=== PATIENT | female | born 1965 | race Two or more races ===

== ENCOUNTER 2022-04-04 16:47 | Inpatient (IN) | payer MEDICAID, OTHER ==
[~2022-04-04] VITALS: Ht 160 cm; Wt 49.4 kg
--- NOTE | 2022-04-04 18:00 | NUR ---
RECEIVED PT CAME BY BALWINDER C/O SOB AND CHEST PAIN NO SOB OR DISTRESS
[2022-04-04] MEDS ORDERED: KETOROLAC TROMETHAMINE INJ 30 MG/ML VIAL ONE (18:27)
[2022-04-04] MEDS ORDERED: KETOROLAC TROMETHAMINE INJ 60 MG/2 ML VIAL IM ONE (18:30)
[2022-04-04] MEDS ORDERED: KETOROLAC TROMETHAMINE INJ 30 MG/ML VIAL IV ONE (18:30)
--- NOTE | 2022-04-04 19:00 | NUR ---
UA SENT TO LAB
[2022-04-04 19:16] LABS: ALBUMIN 2.9 g/dL (3.4-5.0); BILIRUBIN,TOTAL 0.8 mg/dL (0.2-1.0); CALCIUM, SERUM 8.7 mg/dL (8.5-10.1); CREATININE 0.6 mg/dL (0.6-1.3); POTASSIUM 4.5 mmol/L (3.5-5.1); TOTAL PROTEIN, SERUM 6.6 g/dL (6.4-8.2)
[2022-04-04 19:54] LABS: BASOPHILS % (AUTO) 0.1 % (0.0-2.0); EOSINOPHILS % (AUTO) 1.6 % (0.0-6.0); HEMATOCRIT 35 % (33-45); HEMOGLOBIN 11.4 g/dL (11.5-14.8); LYMPHOCYTES # (AUTO) 0.8 K/uL (0.8-4.8); LYMPHOCYTES % (AUTO) 18.7 % (20.0-44.0); MEAN CORPUSCULAR HGB CONC 32 g/dl (31.0-36.0); MEAN CORPUSCULAR VOLUME 86 fL (82-100); MONOCYTES # (AUTO) 0.4 K/uL (0.1-1.30); MONOCYTES % (AUTO) 10.6 % (2.0-12.0); NEUTROPHILS # (AUTO) 2.8 K/uL (1.8-8.9); PLATELET COUNT (AUTO) 120 K/uL (150-450); RED BLOOD CELL COUNT(AUTO) 4.09 MIL/uL (4.0-5.2); WHITE BLOOD COUNT (AUTO) 4.1 K/uL (4.3-11.0)
--- NOTE | 2022-04-04 20:10 | NUR ---
TROP 58
--- NOTE | 2022-04-04 23:08 | NUR ---
COVID SWAB DONE AND SENT TO LAB
[2022-04-05] MEDS ORDERED: MAGNESIUM HYDROXIDE 30 ML UDC PO PRN
[2022-04-05] MEDS ORDERED: Z GUARD REMEDY 4 OZ OINT TP PRN
[2022-04-05] MEDS ORDERED: ZOLPIDEM TARTRATE 5 MG TABLET PO PRN
[2022-04-05] MEDS ORDERED: ONDANSETRON HCL/PF 4 MG/2 ML VIAL IVP PRN
[2022-04-05] MEDS ORDERED: MAG HYDROX/AL HYDROX/SIMETH 30 ML UDC PO PRN
[2022-04-05 05:04] LABS: BASOPHILS % (AUTO) 0.1 % (0.0-2.0); EOSINOPHILS % (AUTO) 2.6 % (0.0-6.0); HEMATOCRIT 33 % (33-45); HEMOGLOBIN 10.7 g/dL (11.5-14.8); LYMPHOCYTES # (AUTO) 0.9 K/uL (0.8-4.8); MEAN CORPUSCULAR HGB CONC 32 g/dl (31.0-36.0); MEAN CORPUSCULAR VOLUME 87 fL (82-100); MONOCYTES # (AUTO) 0.5 K/uL (0.1-1.30); MONOCYTES % (AUTO) 14.7 % (2.0-12.0); NEUTROPHILS # (AUTO) 1.7 K/uL (1.8-8.9); NEUTROPHILS % (AUTO) 53.6 % (43.0-81.0); PLATELET COUNT (AUTO) 104 K/uL (150-450); RED BLOOD CELL COUNT(AUTO) 3.85 MIL/uL (4.0-5.2); WHITE BLOOD COUNT (AUTO) 3.2 K/uL (4.3-11.0)
--- NOTE | 2022-04-05 05:26 | NUR ---
REPORT GIVEN TO JAGDEEP EKNT
--- NOTE | 2022-04-05 05:27 | NUR ---
TRANSFERRING PATIENT TO [facility] VIA ACLS.
[2022-04-05 05:30] LABS: CALCIUM, SERUM 8.2 mg/dL (8.5-10.1); CARBON DIOXIDE 25 mmol/L (21-32); CHLORIDE 110 mmol/L (98-107); CREATININE 0.6 mg/dL (0.6-1.3); GLUCOSE 79 mg/dL (74-106); MAGNESIUM 1.8 mg/dL (1.8-2.4); PHOSPHORUS 3.7 mg/dL (2.5-4.9); SODIUM SERUM 142 mmol/L (136-145); UREA NITROGEN, BLOOD 20 mg/dL (7-18)
--- NOTE | 2022-04-05 05:30 | NUR ---
RN INITIAL NOTE PT ARRIVED TO UNIT VIA GURNEY; ABLE TO AMBULATE TO BED WITH STEADY GAIT. PT IS A&O X4, CALM, COOPERATIVE. PT ON RA WITH O2SAT OF 96%; NO S/S OF RESP DISTRESS, NO SOB, NON-LABORED AND EQUAL BREATHING; NOTED TO HAVE NON-PRODUCTIVE COUGH. PT ATTACHED TO EXTERNAL MONITOR, SR WITH PVCS AND CURRENT HR OF 80. IV ACCESS ON RAC 18G, INTACT AND PATENT, FLUSHES EASILY WITH NO RESISTANCE; NO MEDS/FLUIDS INFUSING THROUGH IT. PER PT REPORT, PT USED TO DRINK ALCOHOL AND SMOKE CIGARETTES, BUT NOT ANYMORE D/T FINANCIAL ISSUES. PT NOT VACCINATED AGAINST FLU OR COVID. BED IN LOWEST POSITION, CALL LIGHT WITHIN REACH, SIDE RAILS UP X. WILL INITIATE PLAN OF CARE
[2022-04-05 05:31] LABS: CHOLESTEROL 66 mg/dL (<200); HDL CHOLESTEROL 24 mg/dL (40-60); LDL 44 mg/dL (0-99); THYROID STIMULATING HORMONE < 0.007 uIU/mL (0.358-3.74); TRIGLYCERIDES 47 mg/dL (30-150)
[2022-04-05 05:35] LABS: BAND % (MANUAL) 2 % (0.0-5.0); BASOPHILS % (MANUAL) 0 % (0.0-2.0); EOSINOPHILS % (MANUAL) 0 % (0-4); LYMPHOCYTES % (MANUAL) 26 % (16-48); MONOCYTES % (MANUAL) 4 % (0-11.0); NEUTROPHILS % (MANUAL) 68 (42-76)
[2022-04-05] MEDS: ACETAMINOPHEN 325 MG TABLET PO PRN ×2 (05:51→18:13)
--- NOTE | 2022-04-05 05:52 | NUR ---
RN NOTE PT NOTED TO HAVE TEMPERATURE OF 105.8. PT ADMINISTERED TYLENOL 650 MG. WILL MONITOR FOR EFFECTIVENESS. Addendum: 04/05/22 at 0607 by PRINCESS BETTYE GANNON DISREGARD TEMPERATURE; MISCOMMUNICATION. PT REPORTS OF PAIN ON LEFT ARM. PT ADMINISTERED TYLENOL 650 MG.
[2022-04-05] MEDS: IPRATROPIUM NEB FS 0.5 MG/2.5 ML AMPUL.NEB NEB SCH ×3 (07:35→20:19)
[2022-04-05 08:00] VITALS: BP 137/65
[2022-04-05] MEDS: METOPROLOL SUCCINATE 50 MG TAB.SR.24H PO SCH (08:50)
[2022-04-05] MEDS: APIXABAN 5 MG TABLET PO SCH ×2 (08:52→21:51)
[2022-04-05] MEDS ORDERED: TIOTROPIUM BROMIDE 6 CAP/BOX CAP.W.DEV IH SCH (09:00)
[2022-04-05] MEDS: METHIMAZOLE (5MG) 5 MG TABLET PO SCH (09:00)
[2022-04-05] MEDS: FLUTICASONE/VILANTEROL 1 EACH BLST.W.DEV IH SCH (09:00)
[2022-04-05] MEDS ORDERED: PANTOPRAZOLE 40 MG VIAL IV SCH (09:00)
[2022-04-05] MEDS: PANTOPRAZOLE 40 MG TABLET.DR PO SCH (10:47)
[2022-04-05 12:00] VITALS: BP 123/60
[2022-04-05] MEDS ORDERED: THIA100T74 PO (13:27)
[2022-04-05] MEDS ORDERED: ATOR40TA PO (13:27)
[2022-04-05] MEDS ORDERED: APIX5TAB PO (13:27)
[2022-04-05] MEDS ORDERED: METO50TA7 PO (13:27)
[2022-04-05] MEDS ORDERED: SACU1TAB PO (13:27)
[2022-04-05] MEDS ORDERED: METH5TAB6 PO (13:27)
[2022-04-05] MEDS ORDERED: TIOT18CA3 IH (13:27)
[2022-04-05] MEDS ORDERED: FLUT1BLS IH (13:27)
[2022-04-05] MEDS ORDERED: ACET-868 PO (13:27)
[2022-04-05] MEDS ORDERED: LIDO30AD10 TP (13:27)
[2022-04-05] MEDS ORDERED: PANT40TA2 PO (13:27)
[2022-04-05] MEDS: LIDOCAINE 5% (PATCH) 1 EA PATCH TP SCH (15:08)
[2022-04-05 16:00] VITALS: BP 121/64
[2022-04-05] MEDS ORDERED: METOPROLOL SUCCINATE 25 MG TAB.SR.24H PO SCH (17:00)
[2022-04-05] MEDS: FUROSEMIDE 20 MG TABLET PO SCH (17:27)
[2022-04-05 20:00] VITALS: BP 113/56
[2022-04-05] MEDS: ATORVASTATIN 40 MG TABLET PO SCH (21:50)
[2022-04-06] VITALS: BP 116/55
[2022-04-06] MEDS: IPRATROPIUM NEB FS 0.5 MG/2.5 ML AMPUL.NEB NEB SCH ×4 (01:23→20:55)
[2022-04-06 04:00] VITALS: BP 100/47
[2022-04-06] MEDS: ACETAMINOPHEN 325 MG TABLET PO PRN ×2 (06:36→17:39)
--- NOTE | 2022-04-06 06:40 | NUR ---
RN CLOSING NOTES: PT IN BED AWAKE, ALERT/ORIENTED X4 AND VERBALLY RESPONSIVE. ON ROOM AIR AND PT TOLERATED WELL. O2 SAT 98%. IV ACCESS RAC#20G INTACT AND PATENT. NO S/S OF INFILTRATION. C/O PAIN ON LT ARM, TYLENOL 325 MG 2 TABS GIVEN AND PT TOLERATED WELL. ABLE TO GO TO BATHROOM BY HERSELF. COOPERATIVE. ALL DUE MEDS GIVEN ORDERED. ALL SAFETY MEASURES IN PLACE. SIDE RAILS UP X3, PLACE CALL LIGHT WITH IN REACH. WILL ENDORSE TO MORNING SHIFT NURSE.
[2022-04-06 07:18] LABS: BASOPHILS % (AUTO) 0.2 % (0.0-2.0); EOSINOPHILS % (AUTO) 2.6 % (0.0-6.0); HEMATOCRIT 34 % (33-45); HEMOGLOBIN 10.7 g/dL (11.5-14.8); LYMPHOCYTES # (AUTO) 0.9 K/uL (0.8-4.8); LYMPHOCYTES % (AUTO) 28.1 % (20.0-44.0); MEAN CORPUSCULAR HGB CONC 32 g/dl (31.0-36.0); MEAN CORPUSCULAR VOLUME 86 fL (82-100); MONOCYTES # (AUTO) 0.4 K/uL (0.1-1.30); MONOCYTES % (AUTO) 13.7 % (2.0-12.0); NEUTROPHILS # (AUTO) 1.8 K/uL (1.8-8.9); NEUTROPHILS % (AUTO) 55.4 % (43.0-81.0); PLATELET COUNT (AUTO) 111 K/uL (150-450); WHITE BLOOD COUNT (AUTO) 3.3 K/uL (4.3-11.0)
--- NOTE | 2022-04-06 07:32 | NUR ---
RN OPENING NOTES: PT IN BED AWAKE, ALERT/ORIENTED X4 AND VERBALLY RESPONSIVE. SITTING AT EDGE OF BED. ON ROOM AIR AND PT TOLERATED WELL. O2 SAT 98%. IV ACCESS RAC#20G INTACT AND PATENT. NO S/S OF INFILTRATION. ABLE TO GO TO BATHROOM BY HERSELF. COOPERATIVE. ALL SAFETY MEASURES IN PLACE. SIDE RAILS UP X3, PLACE CALL LIGHT WITH IN REACH. WILL CONTINUE PLAN OF CARE AND ANTICIPATE NEEDS.
[2022-04-06 07:35] LABS: CALCIUM, SERUM 8.1 mg/dL (8.5-10.1); CREATININE 0.6 mg/dL (0.6-1.3); PHOSPHORUS 3.5 mg/dL (2.5-4.9); POTASSIUM 4.4 mmol/L (3.5-5.1)
[2022-04-06 07:44] LABS: THYROID STIMULATING HORMONE < 0.007 uIU/mL (0.358-3.74)
[2022-04-06 08:00] VITALS: BP 127/67
[2022-04-06] MEDS: FUROSEMIDE 20 MG TABLET PO SCH (08:57)
[2022-04-06] MEDS: PANTOPRAZOLE 40 MG TABLET.DR PO SCH (08:58)
[2022-04-06] MEDS: METOPROLOL SUCCINATE 50 MG TAB.SR.24H PO SCH (08:58)
[2022-04-06] MEDS: FLUTICASONE/VILANTEROL 1 EACH BLST.W.DEV IH SCH (08:58)
[2022-04-06] MEDS: METHIMAZOLE (5MG) 5 MG TABLET PO SCH ×2 (08:59→14:00)
[2022-04-06] MEDS: APIXABAN 5 MG TABLET PO SCH ×2 (08:59→21:11)
[2022-04-06 12:00] VITALS: BP 115/55
--- NOTE | 2022-04-06 13:40 | NUR ---
Card Clothier Consult SW received a homelessness consult request. Pt. is a 56 year old white female who was admitted for chest pain. NAILA met with pt. at bedside. Pt stated that she does not have a place to live. Pt stated she has been homeless for 25 years. Per pt. report, pt had been staying at [facility] but does not want to return there due to feeling scared. Pt. stated she has not contacted her family in 20 years but would like to contact her sister (Leona Pal). Pt. stated she is ambulatory. PT is alert and oriented x4 is groomed and has a flat affect. Pt. is not receiving financial assistance.. Pt. reported feeling tired. Pt. stated she is ambulatory and independent with her ADL's. Pt. reported hx of substance use only alcohol and cigarettes. Pt. disclosed that when she was 22 years old she had a failed suicide attempt in which pt. attempted to overdose on pills. Pt. has been prescribed risperidone in the past for depression. Pt. denied homicidal ideation. DC Plan: When asked about pt. plan after discharge, pt stated she would like a different retirement. SW offered her retirement option to [facility] in which pt. agreed. SW offered pt. homeless resources, and counseling resources. Pt. signed homeless waiver form and placed it in her chart. NAILA discussed with nurse who was agreeable. --------- Year-round shelters: [facility] [address] [place], [place] [phone] ; [facility] [place] [address] [place] [address]; [facility] [place] [facility] [id number] [facility]. [facility] [address] Hygiene: [facility] [place] [facility]: [address] [place] ; [facility] [address] [facility] ; [facility] [address] . Food Resources: [place] [facility] at [facility]- [address]. [place]; Meet Each Need with Dignity ([facility]) [address]; [facility] 2654 [facility]; [facility] 8522 [facility]. Mental Health resources provided: [facility] [address] [place], [place] [address] ; [facility] [address], [place] [address] ; [facility] [address] [place] [address] ; [facility] [address] [place], [place] [id number] Healthcare Clinics: [facility] [address] [facility], [address] [place]. [place] ; [facility] [address] [facility] [address] [place] [address]; [facility] [address] [place] [phone]) [phone] Counseling--[facility]patient [facility] [address] [facility], [place] [address] (Specializes in in-depth psychotherapy for emotional distress: anxiety, depression, interpersonal conflicts, life transitions, childhood abuse) [facility] [address] [place] [address] (Assist with solving problem marital difficulties, separation & divorce, aging parents, & grief, chronic & terminal illness) [facility] [address] [place] [address] (Deal with loss & grief, anxiety, marital difficulties) Homebound/Mental Health Services [address] [facility], [address] [place] [address] (Provide in-home mental services to people who are incapable of leaving their homes) Organization for Needs of the Elderly Senior Service/Resource Center [address] [place] [address] [facility] [address] [facility]. [place], [place] [phone] PSYCHIATRIC OUTPATIENT SERVICES [facility] Partial Hospitalization and Intensive Outpatient Program (Managed Care and Interior Only)[address] [facility] [phone] [facility] Partial Hospitalization and Outpatient [id number] [place], [place] [phone] OBIE QUIJANO [facility], [facility] Scv93008 [facility]. [address] [place], [place] [phone] [facility] Partial Hospitalization and Outpatient [id number] Emelimariam Rust Obie Quijano, [phone] Substance Abuse resources provided included: [facility] Substance Abuse Self-Helpline ([facility]) ; CRI -HELP [address] [facility]. [place] [address] ; [facility] 75434 [facility] [address] ; [facility] Rehabilitation Program [address] [facility] [phone] ; [facility] [address] [facility] [phone] ; [facility] Treatment Centers 4940 [facility] [phone] ; [facility] 909 [facility] [phone] ; [facility] Substance Abuse Helpline(SAS)-[facility] ; [facility] ; [facility]; [facility] [place]; [facility] [place]; I-ADARP Inter Agency Drug Abuse Recovery Obie Macariofredy; [place] [facility]; [facility]; [facility] [place]; [facility], [facility]. Benito [place]; Alcoholics Anonymous -sfv; Caleb ; Marijuana Anonymous -SFV; Narcotics Anonymous [email or web address];
[2022-04-06] MEDS: LIDOCAINE 5% (PATCH) 1 EA PATCH TP SCH (14:02)
[2022-04-06 16:00] VITALS: BP 125/71
[2022-04-06] MEDS: GABAPENTIN 300 MG CAPSULE PO SCH (17:35)
[2022-04-06] MEDS ORDERED: GUAIFENESIN/D-METHORPHAN HB 5 ML UDC PO PRN (18:30)
--- NOTE | 2022-04-06 18:42 | NUR ---
NEEDLE LOOM TENDER CLOSING NOTES PT IN BED AWAKE, ALERT/ORIENTED X4 AND VERBALLY RESPONSIVE. ON ROOM AIR AND TOLERATING IT WELL WITH O2 SAT 98%. IV ACCESS RAC 20G, INTACT AND PATENT. C/O PAIN ON LT ARM, TYLENOL 325 MG 2 TABS GIVEN AT 1740 AND PAIN LEVEL IS NOW AT A 4. ABLE TO GO TO BATHROOM BY HERSELF. COOPERATIVE. ALL DUE MEDS GIVEN ORDERED. ALL SAFETY MEASURES IN PLACE. SIDE RAILS UP X3, PLACE CALL LIGHT WITH IN REACH. WILL ENDORSE TO ONCOMING NURSE.
[2022-04-06 20:00] VITALS: BP 140/70
[2022-04-06] MEDS: ATORVASTATIN 40 MG TABLET PO SCH (21:10)
[2022-04-06] MEDS ORDERED: ATORVASTATIN 40 MG TABLET PO SCH (22:00)
[2022-04-07] VITALS: BP 131/73
[2022-04-07 00:08] VITALS: BP 140/70
[2022-04-07] MEDS: IPRATROPIUM NEB FS 0.5 MG/2.5 ML AMPUL.NEB NEB SCH ×3 (01:30→14:28)
[2022-04-07 04:00] VITALS: BP 128/86
[2022-04-07 07:16] LABS: BASOPHILS % (AUTO) 0.2 % (0.0-2.0); EOSINOPHILS % (AUTO) 2.1 % (0.0-6.0); HEMATOCRIT 34 % (33-45); HEMOGLOBIN 10.9 g/dL (11.5-14.8); LYMPHOCYTES # (AUTO) 0.7 K/uL (0.8-4.8); LYMPHOCYTES % (AUTO) 22.5 % (20.0-44.0); MEAN CORPUSCULAR HGB CONC 32 g/dl (31.0-36.0); MEAN CORPUSCULAR VOLUME 85 fL (82-100); MONOCYTES # (AUTO) 0.4 K/uL (0.1-1.30); MONOCYTES % (AUTO) 12.1 % (2.0-12.0); NEUTROPHILS % (AUTO) 63.1 % (43.0-81.0); PLATELET COUNT (AUTO) 107 K/uL (150-450); RED BLOOD CELL COUNT(AUTO) 3.94 MIL/uL (4.0-5.2); WHITE BLOOD COUNT (AUTO) 3.1 K/uL (4.3-11.0)
--- NOTE | 2022-04-07 07:30 | NUR ---
INSPECTOR AUTOMATIC TYPEWRITER AM NOTES: PT IN BED AWAKE, ALERT/ORIENTED X4 AND VERBALLY RESPONSIVE. SITTING AT EDGE OF BED. ON ROOM AIR AND PT TOLERATED WELL. O2 SAT 98%. SR HR 78 ON MONITOR. DENIES CHEST PAIN OR DISCOMFORT AT THIS TIME. IV ACCESS RAC#20G FLUSHES WELL, SITE CLEAR, AMBULATORY TO BATHROOM BY HERSELF. COOPERATIVE. ALL SAFETY MEASURES IN PLACE. SIDE RAILS UP X3, PLACE CALL LIGHT WITH IN REACH. WILL CONTINUE PLAN OF CARE AND ANTICIPATE NEEDS. FOR POSSIBLE DISCHARGE TODAY.
[2022-04-07 07:42] LABS: CALCIUM, SERUM 8.8 mg/dL (8.5-10.1); CREATININE 0.5 mg/dL (0.6-1.3); MAGNESIUM 1.9 mg/dL (1.8-2.4); PHOSPHORUS 3.3 mg/dL (2.5-4.9); POTASSIUM 4.4 mmol/L (3.5-5.1)
[2022-04-07 08:00] VITALS: BP 128/86
[2022-04-07] MEDS ORDERED: THIAMINE HCL 100 MG TABLET PO SCH (09:00)
[2022-04-07] MEDS ORDERED: TIOTROPIUM BROMIDE 6 CAP/BOX CAP.W.DEV IH SCH (09:00)
--- NOTE | 2022-04-07 09:30 | NUR ---
RN NOTES DUE MEDS GIVEN
[2022-04-07] MEDS: GABAPENTIN 300 MG CAPSULE PO SCH ×2 (09:42→14:06)
[2022-04-07] MEDS: METOPROLOL SUCCINATE 50 MG TAB.SR.24H PO SCH (09:42)
[2022-04-07] MEDS: PANTOPRAZOLE 40 MG TABLET.DR PO SCH (09:42)
[2022-04-07] MEDS: FUROSEMIDE 20 MG TABLET PO SCH (09:43)
[2022-04-07] MEDS: METHIMAZOLE (5MG) 5 MG TABLET PO SCH (09:43)
[2022-04-07] MEDS: APIXABAN 5 MG TABLET PO SCH (09:46)
[2022-04-07] MEDS: FLUTICASONE/VILANTEROL 1 EACH BLST.W.DEV IH SCH (09:48)
[2022-04-07 12:00] VITALS: BP 150/69
--- NOTE | 2022-04-07 12:00 | NUR ---
Discharge Note: NAILA met with pt. at bedside. Py. is ALERT & ORIENTED X 4 and makes good eye contact. The pt. denies SI/HI and denies hallucinations. The pt. stated she is ambulatory and independent with her ADL's. NAILA discussed DC plan with pt. Pt. stated she will return to [facility] [[address] [place] [address]] to get her belongings. SW and pt. called her CM, Lynda Zaidi ([phone] ext [phone]) [facility]. NAILA provided pt. with list of alternate shelters and bus route to [facility] [place] and pt. stated she may leave current penitentiary and choose another as the residents of her current penitentiary "scare" her. NAILA validated the pt.'s concern and encouraged her to choose a place she feels safe. Addie YOO provided pt. with homeless resources for shelters, clothing, food panties, etc, and mental health resources. Pt. signed homeless waiver form yesterday and placed it in her chart. NAILA discussed with nurse, Dana who was agreeable to plan as the pt. is discharging today. Year-round shelters: [place] [facility] [address] [place] [place] [address] ; [place] [facility] [place] [address] [place] [address]; [place] [facility] Meejaby4914 [facility]. [facility] [address] Hygiene: [place] [facility]: [address] [facility] ; [facility] [facility] [address] [facility] ; [facility] 0511 [facility] . Food Resources: [place] [facility] at [facility]- [address]. [place]; Meet Each Need with Dignity ([facility]) [address] [address]; [facility] Food [facility] 8565 [facility]; [facility] [address] [place]. Mental Health resources provided: [facility] [address] [place], [place] [address] ; [facility] [address], [place] [address] ; [facility] Mental [facility] [address] [address] ; [facility] [address] [place], [place] [phone] Healthcare Clinics: [facility] [address] [facility], [address] [place]. [place] ; [facility] [address] [facility] [address] [place] [address]; [facility] [address]759 [place] [address] [phone]) [phone] Counseling--Outpatient [facility] [address] [facility], [place] [address] (Specializes in in-depth psychotherapy for emotional distress: anxiety, depression, interpersonal conflicts, life transitions, childhood abuse) [facility] [address] [place] [address] (Assist with solving problem marital difficulties, separation & divorce, aging parents, & grief, chronic & terminal illness) [facility] [address] [place] [address] (Deal with loss & grief, anxiety, marital difficulties) Homebound/Mental Health Services [address], [address] [place] [address] (Provide in-home mental services to people who are incapable of leaving their homes) Organization for Needs of the Elderly Senior Service/Resource Center [address] [place] [address] [facility] 6514 [facility] [place] [address] PSYCHIATRIC OUTPATIENT SERVICES [facility] Partial Hospitalization and Intensive Outpatient Program (Managed Care and [place] Only)[address] [address] Mahajan. [facility] [phone] [facility] Partial Hospitalization and Outpatient [id number] [place], [place] [phone] [facility] [id number] Sandhya [facility]. [address] [place], [place] [phone] [facility] Partial Hospitalization and Outpatient [id number] Emelimariam [facility] Dirk Quijano, [phone] Substance Abuse resources provided included: [facility] Substance Abuse Self-Helpline ([facility]) ; CRI -HELP [address] [facility]. [place] [address] ; [facility] [address]78[address] [facility] [address] ; [facility] Rehabilitation Program 72585 [facility] [address] ; [facility] 400 [facility] [phone] ; [facility] 4940 [facility] [address] ; [facility] 909 [facility] [phone] ; [facility] Substance Abuse Helpline(SAS)[facility] ; [facility] ; Jobyar Vancourt [facility] Weyerhaeuser; Cri[facility]Help [place]; I-ADARP Inter Agency Drug Abuse Recovery Dirk Quijano; [place] [facility]; [place] Vancourt [place]; [facility] Treatment [place]; [facility] [place]; Alcoholics Anonymous -SFV; Caleb ; Marijuana Anonymous -SFV; Narcotics Anonymous [email or web address];
[2022-04-07] MEDS ORDERED: APIX5TAB PO (12:01)
[2022-04-07] MEDS ORDERED: LIDO30AD10 TP (12:01)
[2022-04-07] MEDS ORDERED: FURO20TA4 PO (12:01)
[2022-04-07] MEDS ORDERED: GABA300C PO (12:01)
[2022-04-07] MEDS ORDERED: METH5TAB6 PO (12:01)
[2022-04-07] MEDS ORDERED: ATOR40TA PO (12:01)
[2022-04-07] MEDS ORDERED: FLUT1BLS IH (12:01)
[2022-04-07] MEDS ORDERED: METO50TA7 PO (12:01)
[2022-04-07] MEDS ORDERED: TIOT18CA3 IH (12:01)
--- NOTE | 2022-04-07 15:07 | NUR ---
RETAIL BANKING MANAGER NOTES PATIENT TO BE DISCHARGED TO PRISON TODAY PER MD IN STABLE. PROVIDED DC INSTRUCTIONS, HEALTH TEACHINGS AND MED RECON LIST. IV ACCESS TO RIGHT AC REMOVED. CATH TIP COMPLETE. PRESSURE AND DRESSING APPLIED. NO BLEEDING. PATIENT TO FOLLOW UP WITH PCP AND WILL MAKE OWN APPOINTMENT. ALL BELONGINGS CHECKED AND RETURNED. ALL PAPER WORKS SIGNED. WHEELED TO LOBBY BY GERALD SOW, WILL TAKE THE BUS TO HER PRISON.
== END 2022-04-07 17:49 | disposition home or self-care (01) | DRG 190 ==
LOC: ER 16:50 → TRANSITION 04-05 04:10 → TELE1 04-05 05:22
PROVIDERS: ADMIT Nurse Practitioner Acute Care; ATTEND Nurse Practitioner Family
DX: I21.4 Non-ST elevation (NSTEMI) myocardial infarction (principal); I77.4 Celiac artery compression syndrome; I50.22 Chronic systolic (congestive) heart failure; A53.9 Syphilis, unspecified; E03.9 Hypothyroidism, unspecified; I48.0 Paroxysmal atrial fibrillation; M54.12 Radiculopathy, cervical region; I73.9 Peripheral vascular disease, unspecified; F10.11 Alcohol abuse, in remission; I48.91 Unspecified atrial fibrillation; Z20.822 Contact with and (suspected) exposure to COVID-19; Z59.00 Homelessness unspecified; I70.1 Atherosclerosis of renal artery; Z86.19 Personal history of other infectious and parasitic diseases; E05.90 Thyrotoxicosis, unspecified without thyrotoxic crisis or storm; F17.200 Nicotine dependence, unspecified, uncomplicated; K57.90 Diverticulosis of intestine, part unspecified, without perforation or abscess without bleeding; Z79.01 Long term (current) use of anticoagulants; K70.30 Alcoholic cirrhosis of liver without ascites
CPT/HCPCS: 36415; 71045-TC; 72125-TC; 73030-TC; 73060-TC; 76536-TC; 80048-TC; 80053-TC; 80061-TC; 83735-TC; 84100-TC; 84439-TC; 84443-TC; 84481; 84484-TC; 85025-TC; 87081-TC; 93307-TC; 94799-TC; 97112-TC; 97116-TC; 97530-TC; C9113; C9803; G0378; J1885; J2405